=== PATIENT | male | born 1935 | race Caucasian/White ===

== ENCOUNTER 2018-05-24 02:58 | Emergency (ER) | payer OTHER, MEDICAID ==
[2018-05-24] MEDS: SOD CHLORIDE 0.9% 1,000 ML IV (03:21)
[2018-05-24 03:22] LABS: ADD MAN DIFF? NO
[2018-05-24 04:05] LABS: BASOPHILS % 0.3 % (0.0-2.0); EOSINOPHILS # 0.1 10^3/ul (0.0-0.5); EOSINOPHILS % 0.9 % (0.0-7.0); HEMATOCRIT 37.8 % (42.0-52.0); HEMOGLOBIN 12.3 g/dl (14.0-18.0); LYMPHOCYTES # 3.2 10^3/ul (0.8-2.9); LYMPHOCYTES % 30.3 % (15.0-51.0); MEAN CORPUSCULAR HEMOGLOBIN 26.8 pg (29.0-33.0); MEAN CORPUSCULAR HGB CONC 32.5 g/dl (32.0-37.0); MEAN CORPUSCULAR VOLUME 82.4 fl (82.0-101.0); MEAN PLATELET VOLUME 9.7 fl (7.4-10.4); MONOCYTE # 0.7 10^3/ul (0.3-0.9); MONOCYTES % 6.5 % (0.0-11.0); NEUTROPHIL # 6.5 10^3/ul (1.6-7.5); NEUTROPHILS % 61.1 % (39.0-77.0); PLATELET COUNT 143 10^3/UL (140-415); RED BLOOD COUNT 4.59 10^6/ul (4.70-6.10); RED CELL DISTRIBUTION WIDTH 15.9 % (11.5-14.5)
[2018-05-24 04:05] LABS: WHITE BLOOD COUNT 10.6 10^3/ul (4.8-10.8)
[2018-05-24] MEDS: IOHEXOL 300MG/ML 150 ML BTL (04:43)
[2018-05-24] MEDS: SOD CHLORIDE 0.9% 100 ML (04:43)
[2018-05-24] MEDS: ONDANSETRON 4 MG INJ IV (04:46)
[2018-05-24] MEDS: morphine 4 MG/ML VIAL IV (04:47)
[2018-05-24] MEDS ORDERED: EPINEPHrine 0.1 MG/ML SYG (05:01)
[2018-05-24 05:34] LABS: ALANINE AMINOTRANSFERASE 24 IU/L (13-69); ALBUMIN 3.3 g/dl (3.3-4.9); ALBUMIN/GLOBULIN RATIO 1.26; ALKALINE PHOSPHATASE 84 IU/L (42-121); ANION GAP 11 (5-13); ASPARTATE AMINO TRANSFERASE 24 IU/L (15-46); BILIRUBIN,INDIRECT 0.2 mg/dl (0-1.1); BILIRUBIN,TOTAL 0.2 mg/dl (0.2-1.3); BLOOD UREA NITROGEN 23 mg/dl (7-20); CALCIUM 9.4 mg/dl (8.4-10.2); CARBON DIOXIDE 18 mmol/L (21-31); CHLORIDE 112 mmol/L (97-110); CREATININE 1.18 mg/dl (0.61-1.24); GLUCOSE 205 mg/dl (70-220); POTASSIUM 4.1 mmol/L (3.5-5.1); SODIUM 141 mmol/L (135-144); TOTAL PROTEIN 5.9 g/dl (6.1-8.1)
[2018-05-24 05:45] LABS: B-TYPE NATRIURETIC PEPTIDE 275 PG/ML (0-450); TROPONIN-I < 0.012 ng/ml (0.000-0.120)
[2018-05-24] MEDS ORDERED: EPINEPHrine 10 MCG/1ml (10 ML SYG) IV (12:00)
== END 2018-05-24 17:07 | disposition expired ==
LOC: E/R 17:07
DX: I71.8 Aortic aneurysm of unspecified site, ruptured (principal); I46.9 Cardiac arrest, cause unspecified; I10 Essential (primary) hypertension
CPT/HCPCS: 31500; 36415; 71045; 71260; 74177; 80053; 83880; 84484; 85025; 92950; 93005; 96361; 96374; 96375; 99285-25